=== PATIENT | female | born 1935 | race Caucasian/White ===

== ENCOUNTER 2018-07-20 13:22 | Observation (INO) ==
[2018-07-20] MEDS ORDERED: ACETAMINOPHEN 1000 MG/100 ML IV IV STA (14:22)
[2018-07-20] MEDS ORDERED: SODIUM CHLORIDE 0.9% 500 ML IV SCH (14:30)
[2018-07-20 14:47] LABS: Basophils # (auto) 0.04 K/uL (0-0.2); Basophils % (auto) 0.8 %; Eosinophils # (auto) 0.06 K/uL (0-0.5); Eosinophils % (auto) 1.1 %; Hemoglobin 12.6 g/dL (12.0-16.0); Lymphocytes # (auto) 2.28 K/uL (1.2-3.4); Lymphocytes % (auto) 43.4 %; Mean Corpuscular Hgb Conc 34.1 g/dL (32-36); Mean Corpuscular Volume 91.1 fL (80-100); Mean Platelet Volume 11.8 fL (7.4-10.4); Monocytes # (auto) 0.38 K/uL (0.11-0.59); Monocytes % (auto) 7.2 %; Neutrophils # (auto) 2.49 K/uL (1.4-6.5); Neutrophils % (auto) 47.5 %; Platelet Count 426 K/uL (130-400); RDW Coefficient of Variation 12.8 % (11.5-14.5); RDW Standard Deviation 42.6 fL (36.4-46.3); Red Blood Count 4.06 M/uL (4.2-5.4); White Blood Count 5.25 K/uL (4.8-10.8)
[2018-07-20 14:52] LABS: Appearance Urine Clear (Clear); Bacteria Urine Automated Negative (Negative); Bilirubin Urine Negative (Negative); Cast Urine Automated 0 /lpf (0-5); Color Urine Yellow; Glucose Urine UA Negative (Negative); Ketones Urine Negative (Negative); Leukocyte Esterase Urine Negative (Negative); Nitrite Urine Negative (Negative); Protein Urine Negative (Negative); Urobilinogen Urine Negative (Negative)
[2018-07-20 15:04] LABS: Albumin Level 3.8 gm/dl (3.4-5.0); BUN Creatinine Ratio 8.8 (10-20); Calcium 9.2 mg/dl (8.5-10.1); Creatinine Clr Calc Pharmacy 39.3 ml/min; Est GFR (African American) 65.9; Est GFR (Non-African American) 56.8; Potassium 3.3 mmol/L (3.5-5.1)
[2018-07-20 15:06] LABS: Bilirubin,Total 0.5 mg/dl (0.2-1); Globulin 3.9 gm/dl (2.5-4.0); Total Protein 7.7 gm/dl (6.4-8.2)
[2018-07-20] MEDS ORDERED: IOVERSOL 100ml IV PRN (16:55)
--- NOTE | 2018-07-20 17:10 | CT Scan Report ---
ABDOMEN AND PELVIS CT WITH IV CONTRAST CT DOSE: 247.47 mGy.cm HISTORY: Acute left lower quadrant abdominal pain left lower abd pain TECHNIQUE: Multiaxial CT images of the abdomen and pelvis were performed following the use of intrave nous contrast. A dose lowering technique was utilized adhering to the principles of ALARA. COMPARISON STUDY: None. FINDINGS: Motion degraded exam. Mild subsegmental bibasilar atelectasis. No pneumatosis or pneumoperitoneum identified. Imaged inferi or cardiac chambers are mildly enlarged. Dense calcifications are seen about the mitral annulus. Aort ic annular and coronary arterial calcifications also noted. There are several circumscribed hypodense lesions about the liver measuring up to 1.3 cm with the rig ht hepatic lobe, indeterminate however suggestive of hepatic cysts. Liver otherwise appears unremarka ble. Spleen, pancreas, gallbladder and adrenal glands appear unremarkable. 6 mm hypodensity about the anterior interpolar left kidney suggestive of a renal cyst. Similar-appearing 6 mm lesion of the pos terior inferior pole right kidney. No ureteral calculi or obstructive uropathy. Urinary bladder is wi thin normal limits. Heterogeneous appearance of the fundal uterus with suggestion of a 1.9 x 1.7 cm m yometrial lesion. Adnexa are within normal limits. Moderate calcified plaque about the aorta without aneurysm. IVC is unremarkable. No adenopathy. Moderate sized hiatal hernia with partially intrathoracic stomach. No small bowel obstruction. Scatte red fluid-filled loops of small bowel with air-fluid levels are noted. Extensive colonic diverticulos is without CT evidence of acute diverticulitis. Visualized appendix in the abdominal right lower quad rant is air-filled and appears noninflamed. No ascites or mesenteric inflammation. Left-sided spigeli an hernia is noted, diastases of 3.1 cm containing mildly inflamed mesenteric fat and antimesenteric portion of adjacent loop of ileum. IMPRESSION: 1. Motion degraded exam. 2. No bowel obstruction or focal bowel wall thickening. 3. Small to moderate left-sided spigelian hernia contains mildly inflamed mesenteric fat and antimese nteric portion of an adjacent loop of nonobstructed ileum. Correlate with clinical exam and patient h istory. 4. Visualized appendix appears normal. 5. Heterogeneous appearance of the right fundal uterus suggestive of a probable uterine leiomyoma. Th is could be correlated with a follow-up pelvic ultrasound if of further clinical concern. 6. Moderate sized hiatal hernia. 7. Additional findings as above. Electronically signed by: Alhaji Melvin M.D. 07/20/2018 5:09 PM
[2018-07-20] MEDS ORDERED: GLYCOPYRROLATE 0.2 MG/ML VIAL ONE (18:12)
[2018-07-20] MEDS ORDERED: NEOSTIGMINE METHYLSULFATE 5 MG/5 ML SYR ONE (18:12)
[2018-07-20] MEDS ORDERED: ONDANSETRON INJ 2 MG/ML 2 ML VIAL ONE (18:12)
[2018-07-20] MEDS ORDERED: fentaNYL citrate 100 MCG/2 ML VIAL ONE ×2 (18:12→20:24)
[2018-07-20] MEDS ORDERED: LARYING-O-JET KIT (LTA) ONE (18:12)
[2018-07-20] MEDS ORDERED: DEXAMETHASONE SOD INJ 4 MG/ML VIAL ONE (18:12)
[2018-07-20] MEDS ORDERED: ROCURONIUM BROMIDE 10 MG/ML 5 ML VIAL ONE (18:12)
[2018-07-20] MEDS ORDERED: LIDOCAINE HCL 2% 2 ML VIAL/AMP(20MG/ML) INFIL ONE (18:12)
[2018-07-20] MEDS ORDERED: PROPOFOL IV EMULSION 10 MG/ML 20 ML VIAL IV ONE (18:12)
[2018-07-20] MEDS ORDERED: BUPIVACAINE/EPINEPHRINE 0.5% MPF 1:200,000 30 ML VIAL ONE (18:14)
[2018-07-20] MEDS ORDERED: CEFAZOLIN 250 MG/ML 1 GM VIAL ONE (18:14)
--- NOTE | 2018-07-20 18:14 | History & Physical Report ---
Date of Service July 20, 2018 Assessment & Plan (1) Spigelian hernia: CT shows spigelian hernia with bowel. no obstruction. lactic acid slightly elevated will proceed with urgent laparoscopy with reduction/repair of hernia discussed options/risks ( bleeding/infection/dvt/pe/mi/cva/injury to other organs/ possible bowel resection etc...) questions answered. ok to proceed. d/w patient and daughter History of Present Illness Primary Care Provider: NO PCP Patient with a several month history of intermittent left lower quadrant abdominal pain. Several days ago she did have some nausea and vomiting. The pain was severe today so she came to the emergency room. No nausea and vomiting today. No other symptoms no weight loss etc. CT scan shows a left lower quadrant spigelian hernia at the site of her pain with some fat and bowel incarcerated within it. Allergies Allergy/AdvReac Type Severity Reaction Status Date / Time No Known Allergies Allergy Verified 07/20/18 15:50 Home Medications Home Medications Medication Instructions Recorded Confirmed Type No Known Home Medications 07/20/18 07/20/18 History Past Med/Surg History Medical History Abdominal pain Social History Feels Safe at Home: Yes Smoking Status: Never smoker Preferred Language: Icelandic Communication Ability: Effective Visual Impairment: No Limitations Hearing Ability: Normal Review of Systems All systems reviewed & are unremarkable except as noted in HPI & below Physical Exam 2 Vital Signs (Past 24 Hours): Last Vital Signs Temp 36.8 C 07/20/18 13:24 Pulse 71 07/20/18 17:00 Resp 20 07/20/18 17:00 BP 151/84 H 07/20/18 17:00 Pulse Ox 97 07/20/18 17:00 Physical Exam: Alert and oriented x3 no acute distress HEENT: [place]. EOMI. no jaundice Heart: RRR Lungs: CTA b/l abdomen: soft. +LLQ tenerness. unable to identify hernia secondary to body habitus. no peritoneal signs ext: no c/c/c Results & Data Medications Administered Ioversol (Optiray 320 100ml) 89 ml IV ONCE PRN PRN Reason: Interaction Checking Stop: 07/24/18 16:54 Last Admin: 07/20/18 16:56 Dose: 89 ml
--- NOTE | 2018-07-20 18:18 | Anesthesiology Consultation ---
Date of Service July 20, 2018 Assessment & Plan Chart Review Chart Review: Acceptable Risk for Surgery and Patient NOT seen in Pre Admission Testing Consults Requested none ASA ASA2E Proposed Anesthesia Anesthesia Type: General Risk / Benefits Reviewed With: PT / POA / Parent / Guardian, Accepts Plan and Informed Consent Obtained NPO Date Last Intake of Fluids: 07/20/18 Time Last Intake of Fluids: 10:00 Date Last Intake of Solids: 07/19/18 Time Last Intake of Solids: 18:00 History Surgery Operation Date: 07/20/18 18:00 Proposed Procedures p Laparoscopic Hernia Repair - Kamaljit Javier, DO Height/Weight Height: 1.57 m Weight: 60.5 kg Allergies Allergy/AdvReac Type Severity Reaction Status Date / Time No Known Allergies Allergy Verified 07/20/18 15:50 Medications Home Medications Medication Instructions Recorded Confirmed Last Taken No Known Home Medications 07/20/18 07/20/18 Unknown Active Medications Generic Name Dose Route Start Last Admin Trade Name Freq PRN Reason Stop Dose Admin Ioversol 89 ml 07/20/18 16:55 07/20/18 16:56 Optiray 320 100ml IV 07/24/18 16:54 89 ml ONCE PRN Administration Interaction Checking Past Medical History Medical History Abdominal pain (Acute) H/O delivery Per patient was put to sleep for child for her first child Hyponatremia Past Anesthesia History No Hx of Anesthesia Complications and No Family Hx of Anesthesia Complications History of PONV No Motion Sickness Screening History of Motion Sickness: No Social History Smoking Status: Former smoker (Smoked for 20years. Quit at age 39) Do You Dip or Chew Tobacco: No Hx Alcohol Use: No Exercise / Class Metabolic Activity II 4-5 Yardwork/Stairs/Walk up hill Physical Exam Vital Signs Last Vital Signs Temp 36.8 C 07/20/18 13:24 Pulse 77 07/20/18 18:10 Resp 21 07/20/18 18:10 BP 151/84 H 07/20/18 18:00 Pulse Ox 97 07/20/18 17:00 ENMT Mouth: no TMJ abnormality and no TMJ clicking Thyromental Distance: > or= 3.5 Finger Breadths Mallampati Class: II Neck normal visual inspection; neck extension not limited Respiratory Auscultation: lungs clear to auscultation bilaterally Cardiovascular Rate/Rhythm: regular rate and regular rhythm Psychiatric Orientation: alert and oriented x 3 Testing Laboratory Results 07/20/18 14:30 07/20/18 14:30 Urine Color Yellow 07/20/18 14:40 Urine Appearance Clear (Clear) 07/20/18 14:40 Urine pH 6.0 (4.5-7.5) 07/20/18 14:40 Ur Specific [place] 1.010 (1.000-1.030) 07/20/18 14:40 Urine Protein Negative (Negative) 07/20/18 14:40 Urine Glucose (UA) Negative (Negative) 07/20/18 14:40 Urine Ketones Negative (Negative) 07/20/18 14:40 Urine Nitrite Negative (Negative) 07/20/18 14:40 Ur Leukocyte Esterase Negative (Negative) 07/20/18 14:40 Urine WBC (Auto) 1-5 /hpf (0-5) 07/20/18 14:40 Urine RBC (Auto) 0-4 /hpf (0-4) 07/20/18 14:40 U Hyaline Cast (Auto) 0 /lpf (0-5) 07/20/18 14:40 U Epithel Cells (Auto) 10-20 /lpf (0-5) H 07/20/18 14:40 Urine Bacteria (Auto) Negative (Negative) 07/20/18 14:40
[2018-07-20] MEDS ORDERED: ePHEDrine sulfate 50 MG/ML AMP IV PRN (18:19)
[2018-07-20] MEDS ORDERED: PHENYLEPHRINE 100MCG/ML 5ML SYR IV PRN (18:19)
[2018-07-20] MEDS ORDERED: fentaNYL citrate 100 MCG/2 ML VIAL IV PRN (18:19)
[2018-07-20] MEDS ORDERED: ONDANSETRON INJ 2 MG/ML 2 ML VIAL IV PRN ×2 (18:19→21:36)
[2018-07-20] MEDS ORDERED: HYDROmorphone INJ 1 MG/ML SYRINGE IV PRN (18:19)
[2018-07-20] MEDS ORDERED: ATROPINE SULFATE 0.1 MG/ML 10ML SYR IV PRN (18:19)
--- NOTE | 2018-07-20 18:27 | Emergency Department Note ---
Entered by Anastasia Bloom acting as a scribe for History of Present Illness General Chief complaint: Abdominal Pain Stated complaint: SEVERE ABDOMINAL PAIN L SIDE Time Seen by Provider: 07/20/18 14:17 Source: patient and american sign language interpreter Limitations: no limitations History of Present Illness Onset (ago): day(s) 2 Location: abdomen (left lower) Pain Consistency: + intermittent Maximum Pain Intensity: 10 Current Pain Intensity: 10 Associated symptoms: + other (The patient denies diarrhea and urinary symptoms. ); no fever/chills and no nausea/vomiting The patient is an 82 year old female who presents to the ED with complaints of intermittent left lower abdominal pain that onset 2 days ago. The patient rates the pain as a 10/10 n severity at its worst. The patient denies diarrhea, vomiting, fever, urinary symptoms. She states that she has never had diverticulitis or kidney stones. The patient denies taking any medications. Home Medications Home Medications Medication Instructions Recorded Confirmed Type No Known Home Medications 07/20/18 07/20/18 History Allergies Allergy/AdvReac Type Severity Reaction Status Date / Time No Known Allergies Allergy Verified 07/20/18 15:50 Past Med/Surg History Medical History Abdominal pain (Acute) H/O delivery Per patient was put to sleep for child for her first child Hyponatremia Social History Feels Safe at Home: Yes Smoking Status: Former smoker (Smoked for 20years. Quit at age 39) Do You Dip or Chew Tobacco: No Hx Alcohol Use: No Preferred Language: Bengali Communication Ability: Effective Visual Impairment: No Limitations Hearing Ability: Normal Review of Systems See HPI for pertinent positives & negatives. and A total of 10 systems reviewed and were otherwise negative Physical Exam Vital Signs Vital Signs - 24 hr 07/20/18 13:24 07/20/18 14:42 07/20/18 15:22 Temperature 36.8 C Temperature Source Oral Sepsis Recent Fever Within 48 Hours No Sepsis New/Unexplained Change in Mental Status No Sepsis Action Taken by Nursing No Action Required Pulse Rate 88 Pulse Rate [Apical] 67 Pulse Rhythm [Apical] Regular Pulse Strength [Apical] Normal Respiratory Rate 20 20 Respiratory Effort / Characteristics Non-Labored Respiratory Depth Normal Respiratory Pattern Blood Pressure 161/106 H Blood Pressure [Left Arm] 161/100 H Blood Pressure Mean 124 Blood Pressure Mean [Left Arm] 120 Blood Pressure Position [Left Arm] Sitting Pulse Oximetry 97 100 99 Oxygen Delivery Method Room Air Room Air Room Air 07/20/18 16:35 07/20/18 16:37 07/20/18 17:00 Temperature Temperature Source Sepsis Recent Fever Within 48 Hours Sepsis New/Unexplained Change in Mental Status Sepsis Action Taken by Nursing Pulse Rate 69 68 Pulse Rate [Apical] 71 Pulse Rhythm [Apical] Regular Pulse Strength [Apical] Normal Respiratory Rate 19 39 H 20 Respiratory Effort / Characteristics Non-Labored Respiratory Depth Normal Respiratory Pattern Regular Blood Pressure 161/100 H Blood Pressure [Left Arm] 151/84 H Blood Pressure Mean 120 Blood Pressure Mean [Left Arm] 106 Blood Pressure Position [Left Arm] Sitting Pulse Oximetry 100 99 97 Oxygen Delivery Method Room Air 07/20/18 17:36 07/20/18 17:38 07/20/18 17:40 Temperature Temperature Source Sepsis Recent Fever Within 48 Hours Sepsis New/Unexplained Change in Mental Status Sepsis Action Taken by Nursing Pulse Rate 77 72 73 Pulse Rate [Apical] Pulse Rhythm [Apical] Pulse Strength [Apical] Respiratory Rate 29 H 25 H 18 Respiratory Effort / Characteristics Respiratory Depth Respiratory Pattern Blood Pressure 136/101 H 151/84 H Blood Pressure [Left Arm] Blood Pressure Mean 112 106 Blood Pressure Mean [Left Arm] Blood Pressure Position [Left Arm] Pulse Oximetry Oxygen Delivery Method 07/20/18 17:50 07/20/18 18:00 07/20/18 18:10 Temperature Temperature Source Sepsis Recent Fever Within 48 Hours Sepsis New/Unexplained Change in Mental Status Sepsis Action Taken by Nursing Pulse Rate 74 79 77 Pulse Rate [Apical] Pulse Rhythm [Apical] Pulse Strength [Apical] Respiratory Rate 19 18 21 Respiratory Effort / Characteristics Respiratory Depth Respiratory Pattern Blood Pressure 151/84 H Blood Pressure [Left Arm] Blood Pressure Mean 106 Blood Pressure Mean [Left Arm] Blood Pressure Position [Left Arm] Pulse Oximetry Oxygen Delivery Method GENERAL: Patient is in no acute distress. HEENT: No acute trauma, normocephalic atraumatic, mucous membranes moist, no nasal congestion, no scleral icterus. NECK: No stridor, no adenopathy, no meningismus, trachea is midline. LUNGS: Clear to auscultation bilaterally, no wheeze, no rhonchi, breath sounds equal. HEART: Subtle systolic murmur. Regular rate and rhythm. ABDOMEN: Soft, mildly tender in the left lower quadrant, bowel sounds positive, no hernias, no peritonitis. EXTREMITIES: No cyanosis or edema, full range of motion of all the joints without pain or difficulty, no signs for acute trauma. NEUROLOGIC: Oriented x 3, no acute motor or sensory deficits, no focal weakness. SKIN: No rash, no jaundice, no diaphoresis. Course 1418: Past medical records reviewed. The patient was evaluated in room B11B, and a complete history and physical examination were performed. 1720: I updated the patient. Upon reevaluation, the patient is resting comfortably. 1740: I reviewed the patient's case with Dr. [facility]. She has been taken to surgery and admitted into his care. Consultations Consultation #1: [id number]: I reviewed the patient's case with Dr. Javier - Surgery. Time: 17:40 Administered Medications Ioversol (Optiray 320 100ml) 89 ml IV ONCE PRN PRN Reason: Interaction Checking Stop: 07/24/18 16:54 Last Admin: 07/20/18 16:56 Dose: 89 ml Discontinued Medications Acetaminophen (Ofirmev) 1,000 mg IV NOW STA Stop: 07/20/18 14:23 Last Admin: 07/20/18 14:38 Dose: 1,000 mg Bupivacaine HCl/Epinephrine Bitart (Sensorcaine/Epinephrine 0.5% Mpf 1:200,000) Confirm Administered Dose 30 ml .ROUTE .STK-MED ONE Stop: 07/20/18 18:15 Last Admin: 07/20/18 19:49 Dose: 20 ml Cefazolin Sodium (Ancef) Confirm Administered Dose 1,000 mg .ROUTE .STK-MED ONE Stop: 07/20/18 18:15 Last Admin: 07/20/18 19:19 Dose: 1,000 mg Sodium Chloride (Nss) 500 mls @ 999 mls/hr IV .Q31M HAWK Stop: 07/20/18 15:00 Last Infusion: 07/20/18 15:40 Dose: 0 mls/hr Admin: 07/20/18 14:47 Dose: 999 mls/hr Cefazolin Sodium (Ancef 1000mg) 1,000 mg in 7.5 mls @ 2.5 mls/min IV NOW STA; Protocol Stop: 07/20/18 19:23 Last Admin: 07/20/18 18:55 Dose: 2.5 mls/min Medical Decision Making Differential Diagnosis Differential Diagnoses Include: Diverticulitis, abscess, bowel perforation, renal polyp, hydronephrosis, mass, UTI, pyelonephritis, bowel ischemia, hernia. Medical Records Attestation: I reviewed the patient's medical records. Home Medications Current Medication List: was personally reviewed by me Laboratory Data Attestation: I reviewed the patient's lab results. Result diagrams: 07/20/18 14:30 07/20/18 14:30 Lab Results 07/20/18 07/20/18 07/20/18 Range/Units 14:30 14:30 14:30 WBC 5.25 (4.8-10.8) K/uL RBC 4.06 L (4.2-5.4) M/uL Hgb 12.6 (12.0-16.0) g/dL Hct 37.0 (37-47) % MCV 91.1 (80-100) fL MCH 31.0 (25-34) pg MCHC 34.1 (32-36) g/dL RDW Std Deviation 42.6 (36.4-46.3) fL RDW Coeff of Jordi 12.8 (11.5-14.5) % Plt Count 426 H (130-400) K/uL MPV 11.8 H (7.4-10.4) fL Immature Gran % (Auto) 0.0 % Neut % (Auto) 47.5 % Lymph % (Auto) 43.4 % [place] % (Auto) 7.2 % Eos % (Auto) 1.1 % Baso % (Auto) 0.8 % Immature Gran # (Auto) 0.00 (0.00-0.02) K/uL Neut # (Auto) 2.49 (1.4-6.5) K/uL Lymph # (Auto) 2.28 (1.2-3.4) K/uL [place] # (Auto) 0.38 (0.11-0.59) K/uL Eos # (Auto) 0.06 (0-0.5) K/uL Baso # (Auto) 0.04 (0-0.2) K/uL Sodium 131 L (136-145) mmol/L Potassium 3.3 L (3.5-5.1) mmol/L Chloride 97 L (98-107) mmol/L Carbon Dioxide 25 (21-32) mmol/L Anion Gap 10.0 (3-11) BUN 8 (7-18) mg/dl Creatinine 0.93 (0.6-1.2) mg/dl Est Cr Clr Drug Dosing 39.3 ml/min Est GFR ( Amer) 65.9 Est GFR (Non-Af Amer) 56.8 BUN/Creatinine Ratio 8.8 L (10-20) Glucose 120 H (70-99) mg/dl Lactate 2.2 H* (0.4-2.0) mmol/L Calcium 9.2 (8.5-10.1) mg/dl Total Bilirubin 0.5 (0.2-1) mg/dl AST 16 (15-37) U/L ALT 19 (12-78) U/L Alkaline Phosphatase 65 (45-117) U/L Total Protein 7.7 (6.4-8.2) gm/dl Albumin 3.8 (3.4-5.0) gm/dl Globulin 3.9 (2.5-4.0) gm/dl Albumin/Globulin Ratio 1.0 (0.9-2) Lipase 130 (73-393) U/L Urine Color Urine Appearance (Clear) Urine pH (4.5-7.5) Ur Specific [place] (1.000-1.030) Urine Protein (Negative) Urine Glucose (UA) (Negative) Urine Ketones (Negative) Urine Blood (Negative) Urine Nitrite (Negative) Urine Bilirubin (Negative) Urine Urobilinogen (Negative) Ur Leukocyte Esterase (Negative) Urine WBC (Auto) (0-5) /hpf Urine RBC (Auto) (0-4) /hpf U Hyaline Cast (Auto) (0-5) /lpf U Epithel Cells (Auto) (0-5) /lpf Urine Bacteria (Auto) (Negative) 07/20/18 Range/Units 14:40 WBC (4.8-10.8) K/uL RBC (4.2-5.4) M/uL Hgb (12.0-16.0) g/dL Hct (37-47) % MCV (80-100) fL MCH (25-34) pg MCHC (32-36) g/dL RDW Std Deviation (36.4-46.3) fL RDW Coeff of Jordi (11.5-14.5) % Plt Count (130-400) K/uL MPV (7.4-10.4) fL Immature Gran % (Auto) % Neut % (Auto) % Lymph % (Auto) % [place] % (Auto) % Eos % (Auto) % Baso % (Auto) % Immature Gran # (Auto) (0.00-0.02) K/uL Neut # (Auto) (1.4-6.5) K/uL Lymph # (Auto) (1.2-3.4) K/uL [place] # (Auto) (0.11-0.59) K/uL Eos # (Auto) (0-0.5) K/uL Baso # (Auto) (0-0.2) K/uL Sodium (136-145) mmol/L Potassium (3.5-5.1) mmol/L Chloride (98-107) mmol/L Carbon Dioxide (21-32) mmol/L Anion Gap (3-11) BUN (7-18) mg/dl Creatinine (0.6-1.2) mg/dl Est Cr Clr Drug Dosing ml/min Est GFR ( Amer) Est GFR (Non-Af Amer) BUN/Creatinine Ratio (10-20) Glucose (70-99) mg/dl Lactate (0.4-2.0) mmol/L Calcium (8.5-10.1) mg/dl Total Bilirubin (0.2-1) mg/dl AST (15-37) U/L ALT (12-78) U/L Alkaline Phosphatase (45-117) U/L Total Protein (6.4-8.2) gm/dl Albumin (3.4-5.0) gm/dl Globulin (2.5-4.0) gm/dl Albumin/Globulin Ratio (0.9-2) Lipase (73-393) U/L Urine Color Yellow Urine Appearance Clear (Clear) Urine pH 6.0 (4.5-7.5) Ur Specific [place] 1.010 (1.000-1.030) Urine Protein Negative (Negative) Urine Glucose (UA) Negative (Negative) Urine Ketones Negative (Negative) Urine Blood Trace H (Negative) Urine Nitrite Negative (Negative) Urine Bilirubin Negative (Negative) Urine Urobilinogen Negative (Negative) Ur Leukocyte Esterase Negative (Negative) Urine WBC (Auto) 1-5 (0-5) /hpf Urine RBC (Auto) 0-4 (0-4) /hpf U Hyaline Cast (Auto) 0 (0-5) /lpf U Epithel Cells (Auto) 10-20 H (0-5) /lpf Urine Bacteria (Auto) Negative (Negative) Imaging Data Radiologist's Impression: Radiology results as stated below per my review and the radiologist's interpretation: ABDOMEN AND PELVIS CT WITH IV CONTRAST CT DOSE: 247.47 mGy.cm HISTORY: Acute left lower quadrant abdominal pain left lower abd pain TECHNIQUE: Multiaxial CT images of the abdomen and pelvis were performed following the use of intravenous contrast. A dose lowering technique was utilized adhering to the principles of ALARA. COMPARISON STUDY: None. FINDINGS: Motion degraded exam. Mild subsegmental bibasilar atelectasis. No pneumatosis or pneumoperitoneum identified. Imaged inferior cardiac chambers are mildly enlarged. Dense calcifications are seen about the mitral annulus. Aortic annular and coronary arterial calcifications also noted. There are several circumscribed hypodense lesions about the liver measuring up to 1.3 cm with the right hepatic lobe, indeterminate however suggestive of hepatic cysts. Liver otherwise appears unremarkable. Spleen, pancreas, gallbladder and adrenal glands appear unremarkable. 6 mm hypodensity about the anterior interpolar left kidney suggestive of a renal cyst. Similar-appearing 6 mm lesion of the posterior inferior pole right kidney. No ureteral calculi or obstructive uropathy. Urinary bladder is within normal limits. Heterogeneous appearance of the fundal uterus with suggestion of a 1.9 x 1.7 cm myometrial lesion. Adnexa are within normal limits. Moderate calcified plaque about the aorta without aneurysm. IVC is unremarkable. No adenopathy. Moderate sized hiatal hernia with partially intrathoracic stomach. No small bowel obstruction. Scattered fluid-filled loops of small bowel with air-fluid levels are noted. Extensive colonic diverticulosis without CT evidence of acute diverticulitis. Visualized appendix in the abdominal right lower quadrant is air -filled and appears noninflamed. No ascites or mesenteric inflammation. Left- sided spigelian hernia is noted, diastases of 3.1 cm containing mildly inflamed mesenteric fat and antimesenteric portion of adjacent loop of ileum. IMPRESSION: 1. Motion degraded exam. 2. No bowel obstruction or focal bowel wall thickening. 3. Small to moderate left-sided spigelian hernia contains mildly inflamed mesenteric fat and antimesenteric portion of an adjacent loop of nonobstructed ileum. Correlate with clinical exam and patient history. 4. Visualized appendix appears normal. 5. Heterogeneous appearance of the right fundal uterus suggestive of a probable uterine leiomyoma. This could be correlated with a follow-up pelvic ultrasound if of further clinical concern. 6. Moderate sized hiatal hernia. 7. Additional findings as above. Electronically signed by: Alhaji Melvin M.D. 07/20/2018 5:09 PM Dictated: [id number]/20/[id number] Transcribed: [id number]/20/[id number] Blood Pressure Blood Pressure Findings: Elevated blood pressure Blood Pressure Disposition: further management by hospitalist [facility] Narrative There is no leukocytosis or worrisome anemia. No significant electrolyte abnormality or kidney failure. No hepatitis. No pancreatitis. Lactic acid level was slightly elevated at 2.2. This could be consistent with infection or even bowel ischemia. Urinalysis does not show evidence for infection. Abdominal and pelvis CT shows a left-sided spigelian hernia with mesenteric inflammation. No diverticulitis or abscess. No bowel obstruction. The patient received IV Tylenol for pain. She seems relatively comfortable. I did do a reexam, there is no peritonitis, no obvious hernia. I spoke with the on-call surgeon. The patient was seen here in the ED by surgery. She is being escorted to the operating room for surgical intervention. I spoke to the patient and case management. The family is aware of the findings as well. Impression & Plan Spigelian hernia Discharge Plan Visit Data Chief Complaint: Abdominal Pain Stated Complaint: SEVERE ABDOMINAL PAIN L SIDE ED Provider: Brennon Reza Discharge Problem: Spigelian hernia Patient Disposition: Being Evaluated by Surgeon Discharge Instructions Interventions: ED Discharge Assessment Last Done: 07/20/18 18:34 The scribe's documentation has been prepared under my direction and personally reviewed by me in its entirety. I confirm that the note above accurately reflects all work, treatment, procedures, and medical decision making performed by me.
[2018-07-20] MEDS ORDERED: ePHEDrine sulfate 50 MG/ML AMP ONE ×2 (19:12→19:18)
[2018-07-20] MEDS ORDERED: CEFAZOLIN 1000MG 1,000 MG/7.5 ML SYR IV STA (19:21)
--- NOTE | 2018-07-20 19:59 | Operative Report ---
Post Operative Report Pre & Post Diagnosis Operation Date: 07/20/18 18:00 Pre-Op Diagnosis: SEVERE ABDOMINAL PAIN L SIDE Post-Op Diagnosis: Spigelian Hernia with incarceration Procedure Operation Date: 07/20/18 18:00 Actual Procedures p Laparoscopy, Reduction Spigelian Hernia, Repair with mesh.(Not Applicable) - Kamaljit Javier DO Surgeon Kamaljit Javier DO Welder Fitter Helper n/a Estimated Blood Loss 5 Findings Consistent with Post-Op Diagnosis Specimens none Description of Procedure After informed consent was obtained the patient was taken to the operating room and placed in supine position. After successful intubation the abdomen was sterilely prepped and draped in usual fashion. A Scott catheter had been placed sterilely prior to prepping the abdomen. I began with a supra umbilical incision with an 11 blade scalpel and carried this down through the soft tissue using electrocautery. The anterior rectus fascia was opened using cautery and 2 #0 Vicryl stay sutures were placed. The peritoneum was elevated using hemostats and incised under direct vision using a Metzenbaum scissor. A finger sweep was performed and a 12 mm Peters trocar was placed. The abdomen was insufflated to 18 mmHg. The laparoscope was inserted and the abdomen examined in 360 degrees. There was an obvious left lower quadrant spigelian hernia with some fat as well as bowel incarceration. A quick look around the abdomen showed no other gross abnormalities. A right lower quadrant 5 mm trocar and a right mid abdominal 5 mm trocar were placed under direct vision. I used traction to reduce the hernia. I was able to use the harmonic scalpel to take down the hernia sac. There was a portion of the sigmoid colon within the hernia as well as a large amount of epiploic fat. After reducing this I did not see any injury or ischemia to bowel. I continued to use the harmonic scalpel to take down adhesions to the undersurface of the fascia. Once I had everything reduced and the fascia cleared I then used a piece of circular 10 cm Surgimesh with a silicone barrier. I rolled it up and inserted into the camera port site. It was unrolled so that the silicone barrier was facing the bowel. A small incision was made directly over the hernia defect and a fascial closure device inserted through the fascial defect grasping the Prolene sutures. This was then used to pull the circular mesh up directly over the defect. The mesh was secured to the fascia using a pro-tack device. I was able to palpate the pro-tack device through the abdominal wall for each firing. The mesh laid nice and tension-free. There was adequate hemostasis. I reexamined the sigmoid colon and epiploica that was incarcerated and saw no damage. I irrigated and suctioned out the left lower quadrant. A final look around the abdomen showed no other gross abnormalities. The trochars were all removed and the abdomen desufflated. The fascia of the camera port was closed using 0 Vicryl in a priqdo-he-nigty fashion. All the wounds were irrigated and closed using 4-0 Monocryl. Marcaine with epinephrine were injected around them for postoperative analgesia and skin glue used as a dressing. The patient was awaken extubated and transferred recovery in stable condition. I attest to the content of the Intraoperative Record and any orders documented therein. Any exceptions are noted below.
[2018-07-20] MEDS ORDERED: HYDROmorphone INJ 0.5 MG/0.5 ML SYR ONE (21:03)
--- NOTE | 2018-07-20 21:16 | Anesthesiology Progress Note ---
Date of Service July 20, 2018 Anesthesia Post Procedure Vital Signs Vital Signs: Temp Pulse Pulse Resp BP BP Pulse Ox 07/20/18 20:51 42 L 9 L 151/49 H 97 07/20/18 20:50 61 21 98 07/20/18 20:45 45 L 14 138/73 98 07/20/18 20:41 46 L 14 122/52 L 96 07/20/18 20:40 47 L 22 98 07/20/18 20:35 76 27 H 148/59 H 88 L 07/20/18 20:30 73 15 151/79 H 97 07/20/18 20:27 75 19 161/123 H 99 07/20/18 20:25 76 17 99 07/20/18 20:23 76 23 139/118 H 99 07/20/18 20:22 76 15 145/119 H 99 07/20/18 20:20 75 19 99 07/20/18 20:17 36.5 C 74 76 17 152/85 H 152/85 H 99 07/20/18 20:16 99 07/20/18 18:10 77 21 07/20/18 18:00 79 18 151/84 H 07/20/18 17:50 74 19 07/20/18 17:40 73 18 07/20/18 17:38 72 25 H 151/84 H 07/20/18 17:36 77 29 H 136/101 H 07/20/18 17:00 71 20 151/84 H 97 07/20/18 16:37 68 39 H 99 07/20/18 16:35 69 19 161/100 H 100 07/20/18 15:22 67 20 161/100 H 99 07/20/18 14:42 100 07/20/18 13:24 36.8 C 88 20 161/106 H 97 Pain Intensity Abdomen: Pain Intensity: 2 Notes Mental Status: alert / awake / arousable Patient Amnestic to Procedure: Yes Nausea / Vomiting: adequately controlled Pain: adequately controlled Airway Patency, RR, SpO2: stable & adequate BP & HR: stable & adequate Hydration State: stable & adequate Anesthetic Complications: no major complications apparent
[2018-07-20] MEDS ORDERED: MoRPHine SULFATE 4 MG/ML 1 ML CARP\\VIAL IV PRN ×2 (21:36)
[2018-07-20] MEDS ORDERED: HYDROCODONE/ACETAMOPHEN 5/325MG TAB PO PRN ×2 (21:36)
[2018-07-20] MEDS ORDERED: ACETAMINOPHEN 1,000 MG/100 ML VIAL IV PRN (21:36)
[2018-07-20] MEDS ORDERED: IBUPROFEN 200 MG TAB PO PRN (21:36)
[2018-07-20] MEDS: LACTATED RINGER'S 1,000 ML IV SCH (22:27)
[2018-07-21] MEDS: LACTATED RINGER'S 1,000 ML IV SCH (08:03)
--- NOTE | 2018-07-21 08:49 | Surgery Progress Note ---
Date of Service July 21, 2018 Assessment & Plan (1) Spigelian hernia: 07/21/2018 s/p Laparoscopy, Reduction Spigelian Hernia, Repair with mesh Patient doing well this AM Reports abdominal pain that brought her to hospital has resolved, now having surgical discomfort along with some right shoulder pain. Tolerating clear liquid diet, advance diet as tolerated. Patient reports that she lives with her daughter who is a nurse. Dr. Javier will be in to see patient later today, if patient continues to do well, pain is controlled, and tolerating a regular diet may be ok for discharge. Return precautions reviewed with patient. Both verbal and written discharge instructions provided. as above. feeling well/no complaints minimal pain ok for d/c. instructions given. Subjective Patient sitting in chair at bedside- reports pain that brought her to hospital has resolved. Reports mild right shoulder pain. Physical Exam 2 Vital Signs (Past 24 Hours): Last Vital Signs Temp 36.9 C 07/21/18 07:34 Pulse 96 H 07/21/18 07:34 Resp 16 07/21/18 07:34 BP 131/80 07/21/18 07:34 Pulse Ox 96 07/21/18 07:34 Gastrointestinal (Abdomen): Inspection/Auscultation: + abdominal surgical incision (all incisions with Dermabond- clean, dry, intact ) Percussion/ Palpation: + abdomen tender (tender with palpation at incisions )
--- NOTE | 2018-07-29 21:09 | Discharge Summary ---
Date of Service July 29, 2018 Admission HPI Per Admitting Provider Patient with a several month history of intermittent left lower quadrant abdominal pain. Several days ago she did have some nausea and vomiting. The pain was severe today so she came to the emergency room. No nausea and vomiting today. No other symptoms no weight loss etc. CT scan shows a left lower quadrant spigelian hernia at the site of her pain with some fat and bowel incarcerated within it. Principal Diagnosis Spigelian Hernia Discharge Data Allergies Allergy/AdvReac Type Severity Reaction Status Date / Time No Known Allergies Allergy Verified 07/20/18 15:50 Procedures Performed Operation Date: 07/20/18 18:00 Actual Procedures p Laparoscopy, Reduction Spigelian Hernia, Repair with mesh.(Not Applicable) - Kamaljit Javier DO Ordered Studies 07/20/18 14:22 CT abd pelvis IV con only Stat Hospital Course (1) Spigelian hernia: 07/21/2018 s/p Laparoscopy, Reduction Spigelian Hernia, Repair with mesh Patient doing well this AM Reports abdominal pain that brought her to hospital has resolved, now having surgical discomfort along with some right shoulder pain. Tolerating clear liquid diet, advance diet as tolerated. Patient reports that she lives with her daughter who is a nurse. Dr. Javier will be in to see patient later today, if patient continues to do well, pain is controlled, and tolerating a regular diet may be ok for discharge. Return precautions reviewed with patient. Both verbal and written discharge instructions provided. as above. feeling well/no complaints minimal pain ok for d/c. instructions given. Total Time Total Time Spent Total Time Spent (In Minutes): 5 Discharge Plan Discharge Items Patient Disposition: Home - Self-Care Reason For Visit: SPIGELIAN HERNIA Discharge Diagnosis: Spigelian Hernia Discharge Goals: Decrease discomfort Activity: As commented below Lifting: No more than 10 pounds Bathing Comment: You may shower, but do not soak or scrub your incisions. Driving/Machine Use Comment: Do not drive if taking [place]. Non-emergency contact: Surgeon Call non-emergency contact if: you have any medication questions, your pain is not controlled, your temperature is above 101.5, your wound has increased redness and your wound has increased drainage Follow-up/Referrals: Kamaljit Javier DO [Surgeon] - (Please call the General Surgery clinic at [phone] to schedule a follow-up appointment with Dr. Javier. Please follow-up with Dr. Javier in 1-2 weeks. ) PCP,NO [Primary Care Provider] - Diet: Regular Addtl Provider Instructions: Pain control- you have been provided a prescription for [place]. You may take 1- 2 tablets every 6 hrs as needed for pain. Do not take any additional Acetaminophen (Tylenol) while taking [place]. You have surgical glue, Dermabond, over your incisions. You may shower, but do not soak or scrub your incisions. Do not submerge your incisions in any pools, baths, or hot tubs. Please call the clinic at [phone] to schedule a follow-up appointment with Dr. Javier. Stand-Alone Forms: [facility], [facility] Pain [facility] Discharge Orders: Discharge Order (Routine); Ordered 07/21/18 Ordered By: Kamaljit Javier Admission Data Admit Date/Time: 07/20/18 20:54 Attending Provider: Kamaljit Javier Admit Provider: Kamaljit Javier Primary Care Provider: PCPVERENA Service: Surgical Services Other Interventions: Discharge Summary Assessment (RN) Last Done: 07/21/18 14:01 Pending Studies at Discharge: No DC Date/Time DO NOT enter until pt leaves facility: 07/21/18 14:48
== END 2018-07-21 14:48 | disposition home or self-care (01) ==
LOC: ED 13:22 → 3N 16:33 → OR 16:33 → 3N 18:34

== ENCOUNTER 2019-05-30 12:55 | Inpatient (IN) ==
[2019-05-30] MEDS ORDERED: MoRPHine SULFATE 4 MG/ML 1 ML CARP\\VIAL IV STA (13:47)
[2019-05-30] MEDS ORDERED: SODIUM CHLORIDE 0.9% 1000ML 1,000 ML IV ONE (13:47)
--- NOTE | 2019-05-30 14:24 | XRay Report ---
XR wrist RT min 3V routine CLINICAL HISTORY: 83 years-old Female presenting with s/p fall, L wrist pain and swelling. TECHNIQUE: Frontal, oblique, and lateral views of the right wrist were obtained. COMPARISON: None. FINDINGS: Intra-articular mildly comminuted fracture of the distal radial metaphysis with impaction at the frac ture plane. There is no significant angulation. Fracture planes also extend into the distal radial ul william joint. There is a cortical step-off at the radiolunate articulation of slightly less than 2 mm. T here may be trace widening of the scapholunate articulation. Regional soft tissue swelling is evident . There is also underlying osteopenia. No advanced degenerative change. IMPRESSION: 1. Mildly comminuted intra-articular fracture of the distal radial metaphysis with significant impac tion. 2. No angulation. 3. 2 mm of articular surface step-off. 4. Possible disruption of the scapholunate articulation. Electronically signed by: Ralph Loza M.D. 05/30/2019 2:22 PM
[2019-05-30] MEDS ORDERED: ACETAMINOPHEN 325 MG TAB PO PRN (16:48)
[2019-05-30] MEDS ORDERED: ALBUT/IPRATROP 3MG/0.5MG NEB 3 ML VIAL NEB PRN (16:48)
[2019-05-30] MEDS ORDERED: LORazepam 0.5 MG/1 ML VIAL IV PRN (16:48)
[2019-05-30] MEDS: MoRPHine SULFATE 4 MG/ML 1 ML CARP\\VIAL IV PRN (17:46)
--- NOTE | 2019-05-30 20:15 | Emergency Department Note ---
Entered by Diandra Rodriguez acting as a scribe for Jacques Koroma MD History of Present Illness General Chief complaint: Fall Time Seen by Provider: 05/30/19 13:15 Source: patient and other (nurse) Mode of arrival: EMS Limitations: no limitations History of Present Illness Provider complaint: Fall Onset (ago): hour(s) (today) Location: upper extremity (wrist) and right Pain Consistency: + other (2 episodes) Quality: + other (fall) Associated symptoms: + other (Additional symptoms: right wrist pain, abdominal pain) Treatments prior to arrival: none The patient is an 83 year old white female w/ PMHx endometrial cancer and spigelian hernia who presents to the ED w/ CC of 2 episodes of fall occurring today. The patient currently complains of intermittent right wrist pain. She states that nothing improves this pain and that she did not take anything for it prior to arrival. She adds that she has abdominal pain. Per nurse, the patient was put on hospice 3 weeks ago for endometrial cancer. The patient is reportedly at home with her daughter, who feels like she can no longer manage the patients pain. The family preservation caseworker notes that hospice has already spoken to the patient and daughter about placement in a shelter. Home Medications Home Medications Medication Instructions Recorded Confirmed Type omeprazole 20 mg PO DAILYBB 05/30/19 05/30/19 History tramadol 50 mg PO Q4H PRN 05/30/19 05/30/19 History Allergies Allergy/AdvReac Type Severity Reaction Status Date / Time No Known Allergies Allergy Verified 07/20/18 15:50 Past Med/Surg History Medical History Abdominal pain (Acute) Endometrial cancer (Acute) H/O delivery Per patient was put to sleep for child for her first child Hyponatremia Social History Preferred Language: Guyanese Communication Ability: Unable Visual Impairment: No Limitations Hearing Ability: Normal Dental Front Office Assistant Required: No Beliefs That Will Affect Care: None Current Living Situation: Family Other Information That Helps Us Care for You: No Feels Safe at Home: Yes Safety Concerns: Feels Safe At This Time Smoking Status: Former smoker Smoking End Date: "years ago" ; Hx Alcohol Use: No Hx Substance Use: No Review of Systems See HPI for pertinent positives & negatives. and A total of 10 systems reviewed and were otherwise negative Physical Exam Vital Signs Vital Signs - 24 hr 05/30/19 12:43 05/30/19 12:59 05/30/19 15:00 Temperature 37.0 C Temperature Source Oral Pulse Rate 99 H 104 H 94 H Respiratory Rate 16 15 17 Respiratory Effort / Characteristics Non-Labored Respiratory Depth Normal Blood Pressure 144/84 H 144/84 H Blood Pressure Mean 104 103 Blood Pressure Position Lying Pulse Oximetry 94 97 Oxygen Delivery Method Room Air Sepsis Recent Fever Within 48 Hours No Sepsis Action Taken by Nursing No Action Required GENERAL: Well appearing, well nourished, NAD, non-toxic. EYE EXAM: Normal conjunctiva. PERRL, no anisocoria and EOM's grossly intact w/o pain. OROPHARYNX: Moist mucous membranes. Grossly normal dentition. NECK: Supple, no nuchal rigidity, no adenopathy, non-tender. No signs of meningismus. LUNGS: Clear to auscultation. Normal chest wall mechanics. HEART: NSR, no MRG. ABDOMEN: Abdomen soft, non-tender, normo-active bowel sounds, no masses, no rebound or guarding. BACK: No CVA TTP. SKIN: No rashes and no bruising. UPPER EXTREMITIES: Deformity and ecchymosis to right wrist. Compartments soft. NVI distally. LOWER EXTREMITIES: No pitting edema. No calf pain. NEURO EXAM: A&O x3, cranial nerves II-XII grossly intact, normal speech, moves all 4 extremities on command w/o issue. Procedures Free Text Procedures Splinting of RUE Performed by: Dr. Koroma and organic preparation technician Indication: R Colles fracture Verbal consent obtained. Risks and benefits were explained with the usual customary discussion. The injured extremity was identified. The patient was prepped and measured for the placement of a sugar tong ortho-glass splint. Splint applied in the standard fashion over a layer of webril and secured using an elastic bandage. Set into a position of function. Normal neurovascular status after placement verified by me. The patient tolerated the procedure well and the care of the splint was discussed with the patient/family. No complications. Orthopedic Splinting/Casting Injury #1: Side: right Upper Extremity Injury Location: wrist Upper Extremity Immobilizer: sugar tong splint Additional Comments: Indication: R radius fracture Performed by: Dr. Koroma Course Course 1337: The patient was evaluated in room A2, and a complete history and physical examination were performed. 1434: I reviewed the patient's case with Dr. Malia Heath. Dr. Finley will evaluate the patient for further management. 1500: I splinted the patient's wrist at this time. See procedure note for details. Consultations Consultation #1: I reviewed the patient's case with Dr. Malia Heath. Dr. Finley will evaluate the patient for further management. Time: 14:34 Administered Medications Morphine Sulfate (Morphine Sulfate) 4 mg IV Q1H PRN PRN Reason: Severe Pain Stop: 06/13/19 16:47 Last Admin: 05/30/19 17:46 Dose: 4 mg Documented by: [id number] Discontinued Medications Sodium Chloride (Nss 1000ml) 1,000 mls @ 999 mls/hr IV .Q1H1M ONE Stop: 05/30/19 14:47 Last Admin: 05/30/19 15:24 Dose: Not Given Documented by: [id number] Morphine Sulfate (Morphine Sulfate) 4 mg IV NOW STA Stop: 05/30/19 13:48 Last Admin: 05/30/19 15:11 Dose: 4 mg Documented by: [id number] Medical Decision Making Differential Diagnosis Differential diagnosis includes: fracture, dislocation, neurovascular compromise, compartment syndrome, soft tissue injury, as well as others were entertained. Medical Records Attestation: I reviewed the patient's medical records. Home Medications Current Medication List: was personally reviewed by me Imaging Data Radiologist's Impression: Radiology results as stated below per my review and the radiologist's interpretation: XR wrist RT min 3V routine CLINICAL HISTORY: 83 years-old Female presenting with s/p fall, L wrist pain and swelling. TECHNIQUE: Frontal, oblique, and lateral views of the right wrist were obtained. COMPARISON: None. FINDINGS: Intra-articular mildly comminuted fracture of the distal radial metaphysis with impaction at the fracture plane. There is no significant angulation. Fracture planes also extend into the distal radial ulnar joint. There is a cortical step- off at the radiolunate articulation of slightly less than 2 mm. There may be trace widening of the scapholunate articulation. Regional soft tissue swelling is evident. There is also underlying osteopenia. No advanced degenerative change. IMPRESSION: 1. Mildly comminuted intra-articular fracture of the distal radial metaphysis with significant impaction. 2. No angulation. 3. 2 mm of articular surface step-off. 4. Possible disruption of the scapholunate articulation. Electronically signed by: Ralph Loza M.D. 05/30/2019 2:22 PM Blood Pressure Blood Pressure Findings: Elevated blood pressure Blood Pressure Disposition: further management by hospitalist MDM Narrative The patient is an 83 year old white female w/ PMHx endometrial cancer and spigelian hernia who presents to the ED w/ CC of 2 episodes of fall occurring today. Patient was seen and evaluated the bedside. Unfortunate the patient does have a known history of end-stage endometrial cancer and is currently placed on hospice. Patient did have a fall and the patient's daughter is the primary product marketing coordinator was concerned that she is unable to care for her at home as well as provide adequate pain control. The patient does have an obvious deformity of the right wrist. The patient did have an x-ray completed. Patient does have a Colles' fracture. Patient was splinted. Patient tolerated this without issue. I did discuss with the patient's medical power of senior attorney that we would honor the patient's POLST. Patient was admitted for further pain control and placement. The patient is DNR/DNI and does not want IV fluids strictly comfort comfort measures only. Definitive Fracture Care note: Dx: R Colles fracture Plan: Immobilization, rest, ice, elevation, analgesia. Impression & Plan Endometrial cancer, Colles' fracture, Dehydration, Fall Discharge Plan Visit Data *Final* Discharge Date/Time: 05/30/19 16:24 Chief Complaint: Fall ED Provider: Jacques Koroma Discharge Problem: Endometrial cancer, Colles' fracture, Dehydration, Fall Patient Disposition: Admitted As Inpatient Discharge Instructions Interventions: ED Discharge Assessment Last Done: 05/30/19 16:24 Discharge Problem: Colles' fracture Qualifiers: Encounter type: initial encounter Fracture type: closed Laterality: right Qualified Code(s): S52.531A - Colles' fracture of right radius, initial encounter for closed fracture Fall Qualifiers: Encounter type: initial encounter Qualified Code(s): W19.XXXA - Unspecified fall, initial encounter The scribe's documentation has been prepared under my direction and personally reviewed by me in its entirety. I confirm that the note above accurately reflects all work, treatment, procedures, and medical decision making performed by me.
--- NOTE | 2019-05-30 20:48 | History & Physical Report ---
Date of Service May 30, 2019 Assessment & Plan (1) Comfort measures only status: Admit GMF Tylenol for mild pain or temp Morphine Q1hr for moderate or severe pain Zofran IV for nausea Protonix ordered as she normally take omeprazole. She may eat anything that she is able. No DVT prophylaxis per patient wishes. (2) Fall: (3) Colles' fracture: ED physician ordered splint Otherwise treat pain associated with fracture. (4) Endometrial cancer: Currently in hospice at home Planning inpatient hospice History of Present Illness 83 y/o female with endometrial cancer under hospice care presented to the ED after 2 ground level falls in her home. Patient is complaining of right wrist pain. The patient's daughter (with whom the patient resides) reports not being able to care for her nor control her cancer pain any longer. Apparently hospice has already spoken with mother and daughter about placement to nursing care facility. I reviewed the patient's POLST and discussed details with daughter. The patient wishes for comfort care to include no fluids or feeding measures. Antibiotics only if needed to provide comfort. No transfusions or blood draws. The patient is not speaking to me at this time. She appears fatigued. Primary Care Provider: NO PCP Allergies Allergy/AdvReac Type Severity Reaction Status Date / Time No Known Allergies Allergy Verified 07/20/18 15:50 Home Medications Home Medications Medication Instructions Recorded Confirmed Type omeprazole 20 mg PO DAILYBB 05/30/19 05/30/19 History tramadol 50 mg PO Q4H PRN 05/30/19 05/30/19 History Past Med/Surg History Medical History Abdominal pain (Acute) Endometrial cancer (Acute) H/O delivery Per patient was put to sleep for child for her first child Hyponatremia Social History Preferred Language: Swedish Communication Ability: Unable Visual Impairment: No Limitations Hearing Ability: Normal Golf Course Ranger Required: No Beliefs That Will Affect Care: None Current Living Situation: Family Other Information That Helps Us Care for You: No Feels Safe at Home: Yes Safety Concerns: Feels Safe At This Time Smoking Status: Former smoker Smoking End Date: "years ago" ; Hx Alcohol Use: No Hx Substance Use: No Review of Systems Review of Systems: Unobtainable due to cognitive status Physical Exam Physical Exam: General- adult female, NAD Head- atraumatic Eyes- PERRL, EOMI, anicteric ENT- oropharynx clear Neck- supple, no JVD, no adenopathy, no thyromegaly. Lungs- clear to auscultation and percussion Heart- regular rhythm; no murmur, no gallop, no rub appreciated Abdomen- normal bowel sounds, soft, nontender. Extremities- no pretibial edema, no calf tenderness; peripheral pulses intact. Right wrist shows bruising and dinner fork deformity. Neuro- Awake and alert at my visit, but not answering questions. She did have a dose of morphine. ED exam did mention patient was 0riented x 3. PERRL, EOMI; no facial palsy; moving all 4 ext. Skin- warm & dry Results & Data Vital Signs (Past 12 Hours) Vital Signs Temp Pulse Pulse Pulse Resp BP BP 05/30/19 17:35 89 12 156/86 H 05/30/19 16:24 85 20 146/96 H 05/30/19 16:00 82 20 140/80 05/30/19 15:00 94 H 17 05/30/19 12:59 104 H 15 144/84 H 05/30/19 12:43 37.0 C 99 H 16 144/84 H Pulse Ox 05/30/19 17:35 90 05/30/19 16:24 97 05/30/19 16:00 97 05/30/19 15:00 05/30/19 12:59 97 05/30/19 12:43 94 Laboratory Results No blood work ordered per patients wishes. [phone] Report Patient: DEQUAN COLEY LAdshayla Date: 05/30/19 MR#: [id number]: [id number] [facility] [id number] Acct ID:[id number]: Date: 1935ity Zip: [place] [address] Age: 83Location: ED Sex: F Room/Bed: Att Phy:Diagnosis: FALL Heydi Phy: PCP,NOService Date: 05/30/19 Fam Phy:Interpreting Phy: Ralph Loza MD Admit Phy: Ordering Phy: Jacques Koroma M.D. cc: ~ XR wrist RT min 3V routine CLINICAL HISTORY: 83 years-old Female presenting with s/p fall, L wrist pain and swelling. TECHNIQUE: Frontal, oblique, and lateral views of the right wrist were obtained. COMPARISON: None. FINDINGS: Intra-articular mildly comminuted fracture of the distal radial metaphysis with impaction at the fracture plane. There is no significant angulation. Fracture planes also extend into the distal radial ulnar joint. There is a cortical step- off at the radiolunate articulation of slightly less than 2 mm. There may be trace widening of the scapholunate articulation. Regional soft tissue swelling is evident. There is also underlying osteopenia. No advanced degenerative change. IMPRESSION: 1. Mildly comminuted intra-articular fracture of the distal radial metaphysis with significant impaction. 2. No angulation. 3. 2 mm of articular surface step-off. 4. Possible disruption of the scapholunate articulation. Electronically signed by: Ralph Loza M.D. 05/30/2019 2:22 PM Dictated: 05/30/19 1421 Transcribed: 05/30/19 1421 Code Status & VTE Plan VTE Prophylaxis Plan VTE Prophylaxis will be ordered: No PG Care Time/CCT Total # of Minutes Spent Total Time Spent: 55 Total Time Spent with Patient: Total time spent is greater than 50% in coordination of care (as documented) at patient's floor/unit and/or counseling patient: (1) Fall Encounter type: initial encounter Qualified Code(s): W19.XXXA - Unspecified fall, initial encounter (2) Colles' fracture Encounter type: initial encounter Fracture type: closed Laterality: right Qualified Code(s): S52.531A - Colles' fracture of right radius, initial encounter for closed fracture
[2019-05-31] MEDS: MoRPHine SULFATE 2 MG/ML CARP IV PRN ×5 (01:36→21:36)
[2019-05-31] MEDS: ONDANSETRON INJ 2 MG/ML 2 ML VIAL IV PRN (08:15)
[2019-05-31] MEDS: MoRPHine SULFATE 4 MG/ML 1 ML CARP\\VIAL IV PRN ×2 (08:15→18:46)
[2019-05-31] MEDS: PANTOprazole 40 MG TAB PO SCH (08:23)
--- NOTE | 2019-05-31 14:07 | Orthopedic Consultation ---
Date of Consultation May 31, 2019 Assessment & Plan (1) Colles' fracture: Will re adjust splint and ELDER to fit better, this was done successfully. Patient is comfort care only due to her rapid mikhail deterioration from stage 4 metastatic cancer. Patient's daughter states patient may have injured left hip but daughter verbally states that she did not want x rays or a work up of the hip due to her rapidly progressing disease. Continue to maintain splint for comfort, please re consult if needed. History of Present Illness Attending Physician: Mercy Holm MD History of Present Illness 83 yr female admitted after a fall at home. Patient has stage 4 metastatic cancer and is in hospice care. She has a right distal radius fracture that is comminuted and interarticular with impaction. Allergies Allergy/AdvReac Type Severity Reaction Status Date / Time No Known Allergies Allergy Verified 07/20/18 15:50 Home Medications Home Medications Medication Instructions Recorded Confirmed Type omeprazole 20 mg PO DAILYBB 05/30/19 05/30/19 History tramadol 50 mg PO Q4H PRN 05/30/19 05/30/19 History Patient History Medical History Abdominal pain (Acute) Endometrial cancer (Acute) H/O delivery Per patient was put to sleep for child for her first child Hyponatremia Social History Preferred Language: Vietnamese Communication Ability: Unable Visual Impairment: No Limitations Hearing Ability: Normal Residential Program Director Required: No Beliefs That Will Affect Care: None Current Living Situation: Family Other Information That Helps Us Care for You: No Feels Safe at Home: Yes Safety Concerns: Feels Safe At This Time Smoking Status: Former smoker Smoking End Date: "years ago" ; Hx Alcohol Use: No Hx Substance Use: No Physical Exam Physical Exam: Right wrist in well fitting splint, ELDER is unravled and partly off. Patient is able to wiggle fingers on command. She is non verbal with daughter at bedside. (1) Colles' fracture Encounter type: initial encounter Fracture type: closed Laterality: right Qualified Code(s): S52.531A - Colles' fracture of right radius, initial encounter for closed fracture
--- NOTE | 2019-05-31 19:01 | Hospitalist Progress Note ---
Date of Service May 31, 2019 Assessment & Plan (1) Comfort measures only status: Admitted for pain control for wrist fracture and placement possibly Tylenol for mild pain or temp Morphine Q1hr for moderate or severe pain and add po Roxanol in effort to transition off IV meds Zofran IV for nausea Protonix ordered as she normally take omeprazole. -advance to clears but family requests no food No DVT prophylaxis per patient wishes. (2) Fall: (3) Colles' fracture: -continue splint as tolerated-keeps removing it -appreciate Ortho consult -pain control as above (4) Endometrial cancer: Currently in hospice at home, no treatment Planning placement with continued Hospice Subjective Pt does say she has pain in the wrist, but otherwise can't tell me anything else. She had her wrist splint completely off when I came to see her and RN reports they had just been in there and it was on Review of Systems Review of Systems: Unobtainable due to cognitive status Physical Exam Constitutional: well developed; no acute distress Eyes: + anicteric sclerae ENMT: Ears: no hearing impairment Neck: trachea midline, no thyromegaly Respiratory: normal respiratory effort, lungs clear to auscultation Cardiovascular: Rate/Rhythm: regular rate and regular rhythm Heart Sounds: no murmur Gastrointestinal (Abdomen): normal bowel sounds, soft, nontender, no hepatosplenomegaly Musculoskeletal: Extremities: + extremities abnormal to inspection (right wrist with small amount swelling,+TTP over radius) Skin: no rashes, warm and dry Neurologic: moves all extremities Psychiatric: Orientation: alert, oriented to person and cooperative; + not oriented to place and + not oriented to time Genitourinary: normal external appearance PG Care Time/CCT Total # of Minutes Spent Total Time Spent with Patient: Total time spent is greater than 50% in coordination of care (as documented) at patient's floor/unit and/or counseling patient: (1) Fall Encounter type: initial encounter Qualified Code(s): W19.XXXA - Unspecified fall, initial encounter (2) Colles' fracture Encounter type: initial encounter Fracture type: closed Laterality: right Qualified Code(s): S52.531A - Colles' fracture of right radius, initial encounter for closed fracture
[2019-05-31] MEDS: MoRPHine SULFATE 5 MG/0.25 ML UDP PO PRN (19:49)
[2019-06-01] MEDS: MoRPHine SULFATE 2 MG/ML CARP IV PRN ×4 (06:31→19:58)
[2019-06-01] MEDS: PANTOprazole 40 MG TAB PO SCH (09:00)
[2019-06-01] MEDS: ONDANSETRON INJ 2 MG/ML 2 ML VIAL IV PRN (11:50)
[2019-06-01] MEDS: MoRPHine SULFATE 5 MG/0.25 ML UDP PO PRN ×3 (13:22→23:53)
--- NOTE | 2019-06-01 19:21 | Hospitalist Progress Note ---
Date of Service June 01, 2019 Assessment & Plan (1) Comfort measures only status: Admitted for pain control for wrist fracture and possible placement Continue Tylenol for mild pain or temp -continue po Roxanol prn Zofran IV for nausea Protonix ordered as she normally take omeprazole. -advance to clears but family requests no food No DVT prophylaxis per patient wishes. (2) Fall: With frequent climbing out of bed, cannot follow direction well. Unclear if this is progressive dementia, brain mets, or from underlying dementia? -on Hospice, provide comfort (3) Colles' fracture: -continue splint as tolerated-keeps removing it -appreciate Ortho consult -pain control as above (4) Endometrial cancer: Currently in hospice at home, no treatment Planning placement with continued Hospice Dispo-awaiting placement at [facility] with Hospice-plan for dc tomorrow to [facility] Subjective Pt confused. Does admit to pain in the right wrist when asked. She again has taken off her wrist splint and I found it buried in her bedsheets. Denies abdominal pain or SOB, no chest pain. Review of Systems Review of Systems: All systems reviewed & are unremarkable except as noted in HPI & below Physical Exam Constitutional: well developed; no acute distress Eyes: + anicteric sclerae ENMT: Ears: no hearing impairment Neck: trachea midline, no thyromegaly Respiratory: normal respiratory effort, lungs clear to auscultation Cardiovascular: Rate/Rhythm: regular rate and regular rhythm Heart Sounds: no murmur Gastrointestinal (Abdomen): normal bowel sounds, soft, nontender, no hepatosplenomegaly Musculoskeletal: Extremities: + extremities abnormal to inspection (right wrist with small amount swelling,+TTP over radius) Skin: no rashes, warm and dry Neurologic: moves all extremities Psychiatric: Orientation: alert; + not oriented to place and + not oriented to time Motor Behavior: + psychomotor agitation Speech: normal rate/rhythm/volume of speech Affect: + anxious affect Results & Data Vital Signs (Past 12 Hours) Vital Signs Temp Pulse Resp BP Pulse Ox 06/01/19 15:00 36.6 C 79 18 109/77 94 PG Care Time/CCT Total # of Minutes Spent Total Time Spent with Patient: Total time spent is greater than 50% in coordination of care (as documented) at patient's floor/unit and/or counseling patient: (1) Fall Encounter type: initial encounter Qualified Code(s): W19.XXXA - Unspecified fall, initial encounter (2) Colles' fracture Encounter type: initial encounter Fracture type: closed Laterality: right Qualified Code(s): S52.531A - Colles' fracture of right radius, initial encounter for closed fracture
[2019-06-02 06:19] VITALS: BP 159/91; PULSE 88; TEMP 97.9; O2SAT 90
[2019-06-02] MEDS: PANTOprazole 40 MG TAB PO SCH ×2 (07:19→07:20)
--- NOTE | 2019-06-02 13:57 | Discharge Summary ---
Date of Service June 02, 2019 Admission HPI Per Admitting Provider 83 y/o female with endometrial cancer under hospice care presented to the ED after 2 ground level falls in her home. Patient is complaining of right wrist pain. The patient's daughter (with whom the patient resides) reports not being able to care for her nor control her cancer pain any longer. Apparently hospice has already spoken with mother and daughter about placement to nursing care facility. I reviewed the patient's POLST and discussed details with daughter. The patient wishes for comfort care to include no fluids or feeding measures. Antibiotics only if needed to provide comfort. No transfusions or blood draws. The patient is not speaking to me at this time. She appears fatigued. Principal Diagnosis Right wrist fracture, Metastatic endometrial cancer Discharge Exam Constitutional well developed; no acute distress Eyes + anicteric sclerae ENMT Ears: no hearing impairment Neck trachea midline, no thyromegaly Respiratory normal respiratory effort, lungs clear to auscultation Cardiovascular Rate/Rhythm: regular rate and regular rhythm Heart Sounds: no murmur Gastrointestinal (Abdomen) normal bowel sounds, soft, nontender, no hepatosplenomegaly Musculoskeletal Extremities: + extremities abnormal to inspection (right wrist with small amount swelling,+TTP over radius) Skin no rashes, warm and dry Neurologic moves all extremities Psychiatric Orientation: alert; + not oriented to place and + not oriented to time Speech: normal rate/rhythm/volume of speech Discharge Data Allergies Allergy/AdvReac Type Severity Reaction Status Date / Time No Known Allergies Allergy Verified 07/20/18 15:50 Consultations 05/30/19 14:37 ED Decision to Admit Stat 05/30/19 16:48 Consult Case Management - Discharge Planning Routine 05/31/19 11:04 Consult Orthopedic Surgery Routine Procedures Performed Wrist xray Hospital Course (1) Comfort measures only status: Admitted for pain control for wrist fracture and possible placement Continue Tylenol for mild pain or temp -continue po Roxanol prn Apparently she was on a Fentanyl patch at home which was removed here in the ER and NOT on the home med rec so she was not getting it here -restart home Fentanyl patch 50mcg q72hr -continue lorazepam 1mg po q6h prn anxiety -can have regular diet for comfort if desired but has had no appetite No DVT prophylaxis per patient wishes. (2) Fall: With frequent climbing out of bed, cannot follow direction well. Unclear if this is progressive dementia, brain mets, or from underlying dementia? -on Hospice, provide comfort (3) Colles' fracture: -continue splint as tolerated-keeps removing it -appreciate Ortho consult -pain control as above (4) Endometrial cancer: Currently in hospice at home, no treatment Has uterine masses seen on CT with mets to liver, lymph nodes Planning placement with continued Hospice Dispo-dc to [facility] with Hospice today Total Time Total Time Spent Total Time Spent (In Minutes): 35 min Total Time Includes: Examination of the Patient, Discharge Planning and Medication Reconciliation Discharge Plan Discharge Items Patient Disposition: Hospice - Medical Facility Reason For Visit: ENDOMETRIAL CA/COMFORT MEASURES Discharge Diagnosis: Endometrial cancer stage 4, right wrist fracture Condition on Discharge: Fair Activity: As commented below Lifting: None Bathing: No limitations Exercise/Sports: As tolerated Exercise Comment: Limit use of right arm for comfort Non-emergency contact: Primary Care Provider Call non-emergency contact if: you have any medication questions, your symptoms worsen, your pain is not controlled, your pain is worsening, your pain is unusual for you and your pain is concerning for you Follow-up/Referrals: PCP,NO [Primary Care Provider] - Diet: Regular Diet Comment: as tolerated for comfort only, has not wanted to eat Addtl Attending Provider Instructions: Continue Roxanol as needed for pain, Fentanyl patch 50 mcg q72 hrs, lorazepam as needed for anxiety Needs continued bowel regimen with senna, docusate Continue right wrist splint for comfort if will tolerate. Pending Studies at Discharge: No Stand-Alone Forms: My [facility] Skilled Items Patient informed of condition?: Yes DNR: Yes Discharge Level of Care: Other Communicable Disease: No Discharge Prognosis: Stable Lines: None Urinary Catheter: No Medications and DC Order Prescriptions: New acetaminophen [Mapap (acetaminophen)] 325 mg Tablet 650 mg PO Q4H PRN (Reason: pain) Qty: 30 RF: 0 morphine concentrate 100 mg/5 mL (20 mg/mL) Solution 5 mg PO Q2HWA PRN (Reason: pain) Qty: 30 RF: 0 sennosides [senna] 8.6 mg tablet 8.6 mg PO DAILY Qty: 30 RF: 0 docusate sodium 100 mg capsule 100 mg PO BID Qty: 60 RF: 0 fentanyl 50 mcg/hr patch 72 hour 1 patch TD Q72H Qty: 5 RF: 0 lorazepam 1 mg tablet 1 mg PO Q6H PRN (Reason: anxiety) Qty: 10 RF: 0 Continued omeprazole 20 mg capsule,delayed release(DR/EC) 20 mg PO DAILYBB RF: 0 Discontinued tramadol 50 mg tablet 50 mg PO Q4H PRN (Reason: Pain) RF: 0 Discharge Orders: Discharge Order (Routine); Ordered 06/02/19 Ordered By: Mercy Holm Admission Data Admit Date/Time: 05/30/19 15:45 Attending Provider: Mercy Holm Admit Provider: Dre Finley Primary Care Provider: PCP,NO Other Providers: Dre Finley ; Pedro Agarwal ; Moses Gomes [facility]
[2019-06-02] MEDS: MoRPHine SULFATE 5 MG/0.25 ML UDP PO PRN (14:07)
== END 2019-06-02 14:28 | disposition hospice, inpatient (51) | DRG 563 ==
LOC: ED 12:55 → 4W 15:45 → SUATTDRO 15:45 → 4W 16:24